=== PATIENT | female | born 1990 | race Caucasian/White ===

== ENCOUNTER 2016-12-30 12:06 | Emergency (ER) | payer BC, OTHER ==
--- NOTE | 2016-12-30 14:06 | ERNOTE ---
Back Pain ER HPI Date of Service: 12/30/16 Time Seen by Provider: 12/30/16 13:44 Source: patient Exam Limitations: no limitations Immunizations: IMMUNIZATION HX Immunizations Up to Date Yes History of Influenza Vaccine Yes Hx Pneumococcal Vaccination No Allergies/Adverse Reactions: Allergies No Known Allergies Allergy (Verified 12/30/16 12:16) Home Medications: HOME MEDICATIONS Ethinyl Estradiol/Drospirenone [Apoorva 28 Tablet] 1 each PO DAILY 12/30/16 [Last Taken Unknown] Meloxicam [Mobic] 7.5 mg PO DAILY #30 tab 12/30/16 [Last Taken Unknown] Orphenadrine Citrate [Norflex] 100 mg PO Q12H #20 tablet.sa 12/30/16 [Last Taken Unknown] Narrative: Pt. comes in with history of chronic back pain that started 10 years ago and is tolerable without medication most of the time but states that whenever she performs heavy lifting or overdoes it then she develops back spasms for a few days that resolve with medication. Pt. states that she has had images of her back in the past that do not show any abnormality. Review of Systems - Review of Systems Constitutional: Present: no symptoms reported. Absent: recent illness, fever, chills, weakness, fatigue, malaise EYE: Present: no symptoms reported ENT: Present: no symptoms reported Respiratory: Present: no symptoms reported. Absent: shortness of breath, cough , wheezing Cardiology: Present: no symptoms reported. Absent: chest pain, palpitations, edema Genitourinary: Present: no symptoms reported. Absent: decreased urinary output , other - incontinence Musculoskeletal: Present: back pain - low back pain Skin: Present: no symptoms reported Neurological: Present: no symptoms reported. Absent: dizziness/light-headedness , numbness, tingling All Other Systems: All systems neg except as marked - Patient's Past Medical History Patient History - Medical: No pertinent hx Patient History - Cardiac/Respiratory: No pertinent hx Patient History - Cancer: No Hx of Cancer Patient History - Surgical Procedures: No surgical history Patient History - Other: None LMP (females 10-50): last week - Social History Living Situations: home Abuse History: No History of abuse Psych History: No pertinent hx Smoking Status: Never smoker Alcohol Use: none Drug Use: none - Immunizations Immunizations Up to Date: Yes Hx Pneumococcal Vaccination: No History of Influenza Vaccine: Yes Physical Exam - Physical Exam General Appearance: Present: wd/wn, alert, no apparent distress Head Exam: Present: normal inspection, no evidence of injury Eye Exam: Normal inspection: bilateral Neck: Present: normal inspection, nontender. Absent: lymphadenopathy (R), lymphadenopathy (L) Respiratory: Present: no respiratory distress, normal breath sounds, no accessory muscle use, chest nontender, lungs clear Cardiovascular/Chest: Present: regular rate, rhythm, no murmur, normal peripheral pulses Back Exam: Present: normal range of motion, no CVA tenderness, no vertebral tenderness, muscle spasm - R lateral Extremity Exam: Present: normal inspection, non-tender, normal range of motion, no edema Neurological Exam: Present: alert, oriented, normal mood/affect, no motor/ sensory deficits, shellfish shucker II-XII nml as tested, normal cerebellar test Skin Exam: Present: normal color, warm/dry. Absent: pallor, skin rash ED Progress - Date and Time Seen: Date and Time: 12/30/16 17:02 As pt. denies any recent injury and and has chronic pain in this area feel that pt. does not need imaging and can follow up with pcp - Vital Signs Patient's Vital Signs:: I have reviewed the patient's vital signs. Vital Signs: Vital Signs 12/30/16 12:12 Temperature 36.9 C Pulse Rate 82 Respiratory 16 Rate Blood Pressure 125/82 O2 Sat by Pulse 98 Oximetry - Progress/Reassessment Chief Complaint: Back Pain Departure Clinical Impression: Back pain Qualifiers: Back pain location: low back pain Chronicity: chronic Back pain laterality: unspecified Sciatica presence: without sciatica Qualified Code(s): M54.5 - Low back pain - Departure Disposition: Home self-care Condition: Good Instructions: Back Pain, Adult, [id number]-Sccy Additional Instructions: Please follow up with primary provider in 2-3 days to discuss PT. Prescriptions: Meloxicam [Mobic] 7.5 mg PO DAILY #30 tab Orphenadrine Citrate [Norflex] 100 mg PO Q12H #20 tablet.sa
[2016-12-30 15:34] VITALS: BP 126/82
== END 2016-12-30 14:10 | disposition home or self-care (01) ==
LOC: ER 12:06
DX: M54.5 Low back pain (principal)